=== PATIENT | male | born 1965 | race American Indian/Alaskan Native ===

== ENCOUNTER 2024-02-14 14:06 | Emergency (ER) | payer BC ==
[2024-02-14] MEDS: Tetracaine HCl/PF 0.5% 4 ML Bottle EYERT ONE (16:13)
== END 2024-02-14 17:15 | disposition home or self-care (01) ==
LOC: JP.ED 14:06
DX: S05.01XA Injury of conjunctiva and corneal abrasion without foreign body, right eye, initial encounter (principal); Z79.899 Other long term (current) drug therapy; X58.XXXA Exposure to other specified factors, initial encounter
CPT/HCPCS: 99283